=== PATIENT | female | born 1975 | race Caucasian/White ===

== ENCOUNTER 2020-09-12 20:20 | Emergency (ER) | payer SELFPAY ==
--- NOTE | ~2020-09-12 | CT_ITS ---
EXAMINATION: CT abdomen pelvis w con DATE: 09/12/2020 22:59 INDICATION: Abdominal pain. History of gastric bypass and hernia repair TECHNIQUE: Computed tomography (CT) of the abdomen and pelvis was performed with 100 cc Omnipaque 350 intravenous contrast. Automated exposure control and iterative reconstruction technique were employe d. Exam dose: 844.36 mGy-cm total exam DLP. COMPARISON: 11/13/2018 CT abdomen pelvis FINDINGS: The lung bases are clear of infiltrate or consolidation. Normal heart size. No pericardial or pleural effusion. Status post cholecystectomy. No bile duct or pancreatic duct dilatation. No hepatic, splenic, pancrea tic or left adrenal space-occupying mass lesion. Stable probable 11 x 15 mm right adrenal adenoma. No renal space occupying mass lesion. No urinary tract calculus or hydroureteronephrosis. The urinary bladder is unremarkable. Uterus is unremarkable. Peripherally enhancing 2 cm right corpus luteum cyst. Normal caliber of the abdominal aorta. No intraperitoneal or retroperitoneal or pelvic mass lesion or adenopathy or ascites. Postoperative change of the stomach; history of gastric bypass surgery. No ureteral or reversible oth er Normal appendix. Mild colonic diverticulosis; no CT evidence of diverticulitis is detected. No bowel obstruction, allison l wall thickening, pneumatosis or intraperitoneal free air is evident. Status post ventral abdominal wall hernia repair, with resolution of fat-containing right periumbilic al fat-containing hernia since 11/13/2018. Status post posterior and interbody spinal fusion at T10-11. Multilevel degenerative disc disease of lumbar spine, most severe at L3-4 and L4-5. IMPRESSION: Status post ventral abdominal wall hernia repair since 11/13/2018 Status post gastric bypass surgery Status post cholecystectomy 2 cm right corpus luteum cyst Normal appendix. Mild colonic diverticulosis; no CT evidence of diverticulitis Reviewed, dictated and finalized at [facility]. Reviewed, dictated and finalized at [facility].
[2020-09-12 20:22] VITALS: BP 141/73; PULSE 76; RESP 16; TEMP 36.4; O2SAT 100
[2020-09-12 20:37] LABS: Basophils Absolute Auto 0.1 K/mm3 (0.0-0.1); Basophils Percent Auto 0.7 % (0.2-1.2); Eosinophils Absolute Auto 0.6 K/mm3 (0-0.3); Eosinophils Percent Auto 6.2 % (0-4.4); Hematocrit 36.1 % (37.0-47.0); Hemoglobin 11.6 g/dL (12.0-15.0); Immature Granulocyte Absolute 0.04 K/mm3 (0.00-0.031); Immature Granulocyte Percent A 0.4 % (0-0.5); Lymphocytes Absolute Auto 2.96 K/mm3 (0.9-3.2); Lymphocytes Percent Auto 30.5 % (18.3-44.2); Mean Corpuscular HGB Conc 32.1 g/dl (32-36); Mean Corpuscular Hemoglobin 29.6 pg (26-34); Mean Corpuscular Volume 92.1 fl (80-100); Mean Platelet Volume 10.8 fl (7.4-10.4); Monocytes Absolute Auto 0.8 K/mm3 (0.1-0.6); Monocytes Percent Auto 8.6 % (2.6-8.5); Neutrophils Absolute Auto 5.2 K/mm3 (1.3-6.7); Neutrophils Percent Auto 53.6 % (45.5-73.1); Platelet Count Result 203 k/mm3 (150-375); Red Blood Count 3.92 M/mm3 (4.2-5.4); White Blood Count 9.7 K/mm3 (4.5-10.0)
[2020-09-12 20:46] LABS: Alanine Aminotransferase 14 U/L (4-35); Albumin Level 4.3 g/dL (3.5-5.1); Alkaline Phosphatase 64 U/L (38-126); Anion Gap 4 mmol/L (8-16); Aspartate Amino Transferase 23 U/L (14-36); Bilirubin,Total 0.7 mg/dL (0.2-1.3); Blood Urea Nitrogen 10 mg/dL (7-17); Calcium 8.7 mg/dL (8.4-10.2); Carbon Dioxide 31 mmol/L (22-30); Chloride 103 mmol/L (98-107); Estimated CRCL calculation 78 ml/min; Estimated Glomerular Filt Rate > 60; Glucose 97 mg/dL (65-105); Lipase 65 U/L (23-300); Potassium 3.9 mmol/L (3.4-5.0); Sodium 138 mmol/L (137-145)
--- NOTE | 2020-09-12 22:17 | ED.GENADULT ---
HPI - General Adult General Chief complaint: Abdominal Pain Stated complaint: abd pain Time Seen by Provider: 09/12/20 22:13 History of Present Illness HPI narrative: Patient is a 45-year-old female who presented to the emergency department with chief complaint of abdominal pain. Patient reports she has history of gastric bypass and also has abdominal hernias who reports that today she started having pain in the epigastric region reports has been nauseated with this states that is worse with palpation improved with rest. The patient states that she is concerned that she may have a hernia or may have an infection inside of her stomach because that is caused her issues before the past. Patient reports that she also has had back pain with this and reports that she has had a thoracic fusion Related Data Allergies Allergy/AdvReac Type Severity Reaction Status Date / Time tramadol Allergy Mild tramadol Verified 11/16/18 13:10 ([id number]) Review of Systems Review of Systems: Narrative: A 10 system review of systems was completed on the patient and is negative except for what is stated in the HPI. Nursing and ancillary documentation was reviewed. [facility] Past Medical History Medical History (Updated 09/13/20 @ 00:33 by Bobby Long MD) Anxiety Arthritis Depression Hernia Migraine Surgical History Surgical History History of lumbar surgery Hx of cholecystectomy Hx of gastric bypass Hx of hernia repair x4 Hx of left knee surgery Hx of tubal ligation Social History Social History Smoking packs per day: 0.25 Smoking cigarettes per day: 5.0 Smoking status: Current every day smoker Gender identity (if verbalized by the patient): Female Exam Narrative: Exam Narrative: GENERAL: Well-appearing, well-nourished, and in no acute distress. HEAD: Normocephalic, atraumatic. EYES: PERRLA and EOMI. ENT: Nares clear, no rhinorrhea or epistaxis. Mucous membranes moist. NECK: Supple. CHEST: Clear to auscultation. No respiratory distress. HEART: Regular rate and rhythm. No murmur heard. Normal peripheral pulses. ABDOMEN: Soft, tender to palpation in the epigastric region, nondistended, normal active bowel sounds. EXTREMITIES: Normal range of motion. No edema. SKIN: Warm, dry, no rash. NEURO: No focal deficits. Alert and oriented x3. PSYCH: Normal mood and affect. Course Vital Signs Vital signs: Vital Signs Temperature 36.4 C L 09/12/20 20:22 Pulse Rate 76 09/12/20 20:22 Respiratory Rate 16 09/12/20 20:22 Blood Pressure 141/73 H 09/12/20 20:22 Pulse Oximetry 100 09/12/20 20:22 Temperature 36.4 C L 09/12/20 20:22 Pulse Rate 52 L 09/12/20 22:36 Respiratory Rate 18 09/12/20 22:36 Blood Pressure 105/67 09/12/20 22:36 Pulse Oximetry 100 09/12/20 22:36 Medical Decision Making Vital Signs Vital Signs: Vital Signs Temperature 36.4 C L 09/12/20 20:22 Pulse Rate 76 09/12/20 20:22 Respiratory Rate 16 09/12/20 20:22 Blood Pressure 141/73 H 09/12/20 20:22 Pulse Oximetry 100 09/12/20 20:22 Temperature 36.4 C L 09/12/20 20:22 Pulse Rate 52 L 09/12/20 22:36 Respiratory Rate 18 09/12/20 22:36 Blood Pressure 105/67 09/12/20 22:36 Pulse Oximetry 100 09/12/20 22:36 Lab Data Result diagrams: 09/12/20 20:30 09/12/20 20:30 Labs: Lab Results 09/12/20 09/12/20 09/12/20 Range/Units 20:30 20:30 22:21 WBC 9.7 (4.5-10.0) K/mm3 RBC 3.92 L (4.2-5.4) M/mm3 Hgb 11.6 L (12.0-15.0) g/dL Hct 36.1 L (37.0-47.0) % MCV 92.1 (80-100) fl MCH 29.6 (26-34) pg MCHC 32.1 (32-36) g/dl RDW 15.0 H (11.5-14.5) % Plt Count 203 (150-375) k/mm3 MPV 10.8 H (7.4-10.4) fl Immature Gran % (Auto) 0.4 (0-0.5) % Neut % (Auto) 53.6 (45.5-73.1) % Lymph % (A
[2020-09-12 22:31] LABS: Add Urine Microscopic? NO; Appearance Urine Clear (Clear); Bilirubin Urine Negative (Negative); Blood Urine Negative (Negative); Color Urine Colorless (Yellow); Glucose Urine UA Negative (Negative); Ketones Urine Negative (Negative); Leukocyte Esterase Ur Negative LEU/UL (Negative); Nitrate Urine Negative (Negative); Protein Urine Negative (Negative); Urobilinogen Urine Negative mg/dL (<2.0)
[2020-09-12] MEDS: SODIUM CHLORIDE 0.9% IV 1,000 ML 999 ML IV CONT (22:32)
[2020-09-12] MEDS: ONDANSETRON INJ 4 MG/2 ML VIAL IV PUSH (22:33)
[2020-09-12] MEDS: DICYCLOMINE HCL INJ 20 MG/2 ML VIAL IM (22:33)
[2020-09-12 22:36] VITALS: BP 105/67; PULSE 52; RESP 18; O2SAT 100
[2020-09-12 22:46] LABS: Specific Grav Ur 1.003 (1.001-1.035)
[2020-09-12 23:45] VITALS: BP 123/70; PULSE 62; RESP 16; O2SAT 99
[2020-09-13 01:05] VITALS: BP 118/70; PULSE 64; RESP 16; O2SAT 99
== END 2020-09-13 01:04 | disposition home or self-care (01) ==
PROVIDERS: Emergency Medicine; Emergency Provider Emergency Medicine; PCP Emergency Medicine
DX: R10.84 Generalized abdominal pain (principal); M19.90 Unspecified osteoarthritis, unspecified site; Z98.84 Bariatric surgery status; Z98.1 Arthrodesis status; F17.210 Nicotine dependence, cigarettes, uncomplicated; N83.11 Corpus luteum cyst of right ovary; K57.90 Diverticulosis of intestine, part unspecified, without perforation or abscess without bleeding
CPT/HCPCS: 36415; 74177; 80053; 81003; 81025; 83690; 85025; 96361; 96372; 96374; 99284; J0500; J2405; J7030; Q9967

== ENCOUNTER 2021-02-23 14:01 | Emergency (ER) | payer SELFPAY ==
--- NOTE | ~2021-02-23 | XR_ITS ---
EXAMINATION: XR knee LT 3V DATE: 02/23/2021 21:30 INDICATION: Anterior left knee pain and inability to bear weight. TECHNIQUE: Anteroposterior, 2 oblique and crosstable lateral views of the left knee were obtained COMPARISON: 05/20/2007 FINDINGS: Likely realignment osteotomy the anterior tibial tubercle which appears to been revised since the victor hugo or study, now with 3 cancellous screws with washers. Bone alignment is normal. No fracture. Joint spa yvonne appear normal on nonweightbearing imaging. Likely small left knee joint effusion at the suprapate llar pouch. No layering lipohemarthrosis. Soft tissues are otherwise unremarkable. IMPRESSION: 1. Small left knee joint effusion without acute osseous abnormality. Reviewed, dictated and finalized at [facility].
[2021-02-23 14:55] VITALS: BP 136/68; PULSE 71; RESP 16; TEMP 36.9; O2SAT 100
[2021-02-23 16:20] VITALS: BP 119/75; PULSE 66; RESP 18; TEMP 36.6; O2SAT 100
--- NOTE | 2021-02-23 21:15 | ED.EXTPRO ---
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 Patient also complaining of tingling of both hands but states that this has been going on since she has had her back surgery due to herniated disc in her thoracic spine 6 months ago, has an appointment to see her orthopedic doctor 2 weeks from now. Patient denies any recent injury to her back. Patient denies any weakness or numbness of her upper extremities. Patient denies any weakness or numbness of her lower extremities. Patient denies any incontinence. Patient denies any fever or chills. Related Data Allergies Allergy/AdvReac Type Severity Reaction Status Date / Time tramadol Allergy Mild tramadol Verified 11/16/18 13:10 ([id number]) Review of Systems Review of Systems: All systems reviewed & are unremarkable except as noted in HPI and below Constitutional: Constitutional: Denies body ache(s), Denies chills, Denies excessive sweating, Denies fatigue, Denies fever(s), Denies headache(s), Denies lethargy, Denies malaise, Denies weakness and Denies weight loss Eyes: Eyes: Denies blurry vision, Denies change in vision and Denies loss of vision ENT: Denies dizziness, Denies ear discharge, Denies headache(s), Denies lip swelling, Denies epistaxis, Denies nasal congestion, Denies neck pain, Denies throat swelling and Denies tongue swelling Cardiovascular: Cardiovascular: Denies chest pain, Denies chest pain at rest, Denies chest pain with activity, Denies diaphoresis, Denies rapid heart rate, Denies edema, Denies irregular heart rhythm, Denies lightheadedness, Denies palpitations, Denies dyspnea and Denies dyspnea on exertion Respiratory: Respiratory: Denies chest congestion, Denies cough, Denies hemoptysis, Denies dyspnea and Denies dyspnea on exertion Gastrointestinal: Gastrointestinal: Denies abdominal pain, Denies melena, Denies hematochezia, Denies diarrhea, Denies nausea, Denies vomiting and Denies hematemesis Musculoskeletal: Musculoskeletal: Denies abnormal gait, Denies deformity, Denies limited range of motion and Denies numbness Neurologic: Denies Abnormal speech present, Denies abnormal gait, Denies confusion, Denies dizziness, Denies headache(s), Denies focal weakness, Denies loss of vision, Denies numbness, Denies Other visual disturbances and Denies weakness Psychiatric: Psychiatric: Denies confusion, Denies depression, Denies auditory hallucinations, Denies homicidal ideation and Denies suicidal ideation Endocrine: Endocrine: Denies cold intolerance, Denies excessive sweating, Denies fatigue, Denies heat intolerance and Denies palpitations Hematologic/Lymphatic: Hematologic/Lymphatic: Denies easy bleeding and Denies easy bruising Allergic/Immunologic: Allergic/Immunologic: Denies lip swelling, Denies throat swelling and Denies tongue swelling PMFSH Past Medical History Medical History (Updated 02/23/21 @ 21:58 by Maco Cedillo MD) Anxiety Arthritis Depression Hernia Migraine Surgical History Surgical History History of lumbar surgery Hx of cholecystectomy Hx of gastric bypass Hx of hernia repair x4 Hx of left knee surgery Hx of tubal ligation Social History Social History Smoking packs per day: 0.25 Smoking cigarettes per day: 5.0 Smoking status: Current every day smoker Gender identity (if verbalized by the patient): Female Exam Const: General: cooperative, healthy appearing, comfortable, no acute distress, well develop
[2021-02-23 22:06] VITALS: BP 108/60; PULSE 60; RESP 18; TEMP 36.1; O2SAT 100
[2021-02-23] MEDS: KETOROLAC 30 MG/ML VIAL (*BKC) IM (22:09)
== END 2021-02-23 22:40 | disposition home or self-care (01) ==
PROVIDERS: Emergency Provider Emergency Medicine; PCP Emergency Medicine
DX: S86.912A Strain of unspecified muscle(s) and tendon(s) at lower leg level, left leg, initial encounter (principal); M54.10 Radiculopathy, site unspecified; Z98.84 Bariatric surgery status; M19.90 Unspecified osteoarthritis, unspecified site
CPT/HCPCS: 73562; 96372; 99284; J1100; J1885

== ENCOUNTER 2022-03-09 12:21 | Outpatient (CLI) | payer BC, SELFPAY ==
--- NOTE | ~2022-03-09 | MR_ITS ---
EXAMINATION: MR lumbar spine wo/w con DATE: 03/09/2022 13:45 INDICATION: FUSION OF SPINE, UNSPECFIED SPINAL REGION . TECHNIQUE: Magnetic resonance imaging (MRI) of the lumbar spine was performed with 13 mL MultiHance i ntravenous contrast. Sequences included sagittal T2-weighted FSE, sagittal T2-weighted FS FSE, sagitt al T1-weighted FSE, and axial T2-weighted FSE, and postcontrast sagittal and axial T1-weighted sequen yvonne. COMPARISON: CT abdomen and pelvis FINDINGS: The last fully formed and hydrated disc is designated L5-S1. Moderate lumbar scoliosis. Mod ic type I changes about the L3-4 disc space. 12 x 7 mm area of focal enhancement in the left medial i liac bone with adjacent low signal sclerosis and corresponding low T1 signal, incompletely evaluated, and not included in the [id number] of T2-weighted sequences. Conus terminates at T12-L1. Mild clu mping of lumbar nerve roots. Multilevel disc dehydration and disc height loss, severe at L3-4. The fo llowing disc levels are specifically discussed: T12-L1: The disc does not extend beyond the endplate margin. There is mild facet joint osteoarthritis . There is no neural foraminal stenosis. There is no central canal stenosis. L1-L2: The disc does not extend beyond the endplate margin. There is mild facet joint osteoarthritis. There is no neural foraminal stenosis. There is no central canal stenosis. L2-L3: Moderate diffuse bulge with a left lateral component. There is moderate facet joint osteoarthr itis. There is no right and mild left neural foraminal stenosis. There is no central canal stenosis. L3-L4: Large diffuse bulge with a 3 mm left paracentral protrusion. There is moderate facet joint ost eoarthritis. There is severe right and mild left neural foraminal stenosis. There is mild central can al stenosis. L4-L5: Moderate diffuse bulge. There is severe facet joint osteoarthritis. There is mild right and mo derate left neural foraminal stenosis. There is no central canal stenosis. L5-S1: Mild diffuse bulge. There is severe facet joint osteoarthritis. There is mild bilateral neural foraminal stenosis. There is no central canal stenosis. IMPRESSION: 1. Incompletely evaluated, focal enhancement in the left medial iliac bone adjacent sclerosis, consid er pelvic radiographs and MR pelvis with contrast for further evaluation. 2. Severe degenerative disc disease and severe right neural foraminal narrowing at L3-4. 3. Severe facet arthropathy at L4-5 and L5-S1. 4. Mild lumbar adhesive arachnoiditis. Reviewed, dictated and finalized at [facility]. IMPRESSION: 1. Incompletely evaluated, focal enhancement in the left medial iliac bone lexa cent sclerosis, consider pelvic radiographs and MR pelvis with contrast for fur ther evaluation. 2. Severe degenerative disc disease and severe right neural foraminal narrowing at L3-4. 3. Severe facet arthropathy at L4-5 and L5-S1. 4. Mild lumbar adhesive arachnoiditis.
--- NOTE | ~2022-03-09 | MR_ITS ---
EXAMINATION: MR thoracic spine wo/w con DATE: 03/09/2022 13:45 INDICATION: TECHNIQUE: Magnetic resonance imaging (MRI) of the thoracic spine was performed with 13 mL MultiHance intravenous contrast. Sagittal localizer T1-weighted FSE of the cervical spine was obtained. Thoraci c spine sequences included sagittal T2-weighted FSE, sagittal T1-weighted FSE, sagittal T2-weighted F S FSE, and axial T2-weighted FSE, and sagittal and axial postcontrast T1-weighted sequences. COMPARISON: CT abdomen and pelvis 09/12/20. FINDINGS: No suspicious focal or diffuse marrow signal. T4 vertebral body hemangioma. Mild thoracic s coliosis. Vertebral bodies are aligned. Mild degenerative disc disease at T5-6 through T7-8, with 2-3 mm central protrusions. Posterior fusion at T10-11. Interbody device and marginal osteophytosis proj ect 6 mm into the central and left paracentral portion of the canal, unchanged. Severe left neural fo raminal narrowing at T10-11, remaining foramen are patent. Vertebral body heights are intact. Normal facets. The cord is normal in signal and caliber. Conus terminates at . IMPRESSION: 1. Posterior T10-11 effusion, no MR findings to suggest hardware complication. Consider radiographs o f the thoracolumbar spine to evaluate for hardware fracture or subtle perihilar hardware lucency. 2. Interbody device and surrounding degenerative change project 6 mm to the central canal causing mil d central canal stenosis, unchanged. 3. Severe left foraminal narrowing at T10-11. Reviewed, dictated and finalized at [facility]. IMPRESSION: 1. Posterior T10-11 effusion, no MR findings to suggest hardware complication. Consider radiographs of the thoracolumbar spine to evaluate for hardware fractu re or subtle perihilar hardware lucency. 2. Interbody device and surrounding degenerative change project 6 mm to the guicho tral canal causing mild central canal stenosis, unchanged. 3. Severe left foraminal narrowing at T10-11.
== END 2022-03-09 12:22 | disposition home or self-care (01) ==
PROVIDERS: PCP Family Medicine; Visit Provider Physician Assistant
DX: M43.20 Fusion of spine, site unspecified (principal); M96.1 Postlaminectomy syndrome, not elsewhere classified; M89.9 Disorder of bone, unspecified; M51.36 Other intervertebral disc degeneration, lumbar region; M12.88 Other specific arthropathies, not elsewhere classified, other specified site; G03.9 Meningitis, unspecified
CPT/HCPCS: 72157; 72158; A9577

== ENCOUNTER 2022-03-13 14:38 | Outpatient (CLI) | payer BC, SELFPAY ==
--- NOTE | ~2022-03-13 | XR_ITS ---
EXAMINATION: XR thoracic spine 3V, XR pelvis min 3V, XR lumbar spine min 4V DATE: 03/13/2022 15:20 INDICATION: Spinal fusion. Lumbar postlaminectomy syndrome. Right sciatica pain. TECHNIQUE: 1. One AP, lateral and lateral swimmer's views of the thoracic spine were obtained. 2 . AP, lateral, left and right oblique and lateral coned-down lumbosacral views of the lumbar spine were obtained. 3. 3 views of the pelvis including AP, inlet and outlet views were obtained. COMPARISON: Thoracic and lumbar spine MRI dated 03/09/[address] abdomen and pelvis dated 09/12/2020 FINDINGS: Thoracic spine: 9 degrees thoracic dextrocurvature measured between T2 and T8. Sagittal alignment is normal. Instrume nted anterior and posterior spinal fusion at T10-T11 with interbody bone graft cages and bilateral ve rtical corey and pedicle screw fixation. Vertebral body heights are normal. Multilevel and mild to mode rate thoracic disc height loss with small degenerative endplate osteophytes most prominent at T6-T7 t hrough T9-T10. Paravertebral soft tissues are unremarkable. Visualized portions of the lungs are nova r with no pleural effusion or pneumothorax. Cardiomediastinal silhouette is normal. Cholecystectomy c lips in right upper quadrant. Postoperative changes in the left epigastric region with surgical clips and suture line suggesting prior gastric bypass procedure. Lumbar spine: 20 degrees lumbar levorotoscoliosis between L1 and L4. Sagittal alignment is normal. Vertebral body h eights are normal. Moderate to severe right-sided predominant disc height loss at L3-L4 and moderate left-sided predominant disc height loss at L4-L5, both with associated degenerative endplate changes. No pars interarticularis defects. Bilateral lumbar facet osteoarthritis, mild at the upper lumbar sp ine radiographs from to severe at L4-L5 and L5-S1. Postoperative change of prior ventral hernia repai r. Pelvis: Normal alignment and joint space at the bilateral hips. Mild bilateral sacroiliac osteoarthritis, rig ht greater than left. No fracture or suspected avascular necrosis. IMPRESSION: 1. 9 degrees thoracic dextrocurvature with moderate spondylosis. 2. Combined instrumented T10-T11 anterior and posterior spinal fusion. 3. 20 degrees lumbar levorotoscoliosis with moderate to severe lower lumbar spondylosis. 4. Mild bilateral sacral erect osteoarthritis, right greater than left. 5. Additional postoperative changes consistent with cholecystectomy, gastric bypass and ventral herni a mesh repair. Reviewed, dictated and finalized at [facility]. IMPRESSION: 1. 9 degrees thoracic dextrocurvature with moderate spondylosis. 2. Combined instrumented T10-T11 anterior and posterior spinal fusion. 3. 20 degrees lumbar levorotoscoliosis with moderate to severe lower lumbar spo ndylosis. 4. Mild bilateral sacral erect osteoarthritis, right greater than left. 5. Additional postoperative changes consistent with cholecystectomy, gastric by pass and ventral hernia mesh repair. IMPRESSION: 1. 9 degrees thoracic dextrocurvature with moderate spondylosis. 2. Combined instrumented T10-T11 anterior and posterior spinal fusion. 3. 20 degrees lumbar levorotoscoliosis with moderate to severe lower lumbar spo ndylosis. 4. Mild bilateral sacral erect osteoarthritis, right greater than left. 5. Additional postoperative changes consistent with cholecystectomy, gastric by pass and ventral hernia mesh repair.
== END 2022-03-13 14:39 | disposition home or self-care (01) ==
PROVIDERS: PCP Family Medicine; Visit Provider Physician Assistant
DX: Z98.1 Arthrodesis status (principal); M16.10 Unilateral primary osteoarthritis, unspecified hip; M43.20 Fusion of spine, site unspecified; M96.1 Postlaminectomy syndrome, not elsewhere classified; M47.817 Spondylosis without myelopathy or radiculopathy, lumbosacral region; M41.9 Scoliosis, unspecified
CPT/HCPCS: 72072; 72110; 72190